=== PATIENT | female | born 1960 | race Two or more races ===

== ENCOUNTER 2022-03-16 11:38 | Emergency (ER) | payer MEDICAID, OTHER ==
[~2022-03-16] VITALS: Ht 160 cm; Wt 110.0 kg
[2022-03-16 12:27] VITALS: BP 157/90
[2022-03-16 12:35] LABS: Urine Bacteria NONE SEEN /hpf (None Seen); Urine WBC 1548 /hpf (0 - 5)
[2022-03-16 12:39] LABS: Urine Specific Gravity 1.015 (1.001-1.035)
[2022-03-16 12:40] LABS: Urine Blood 4+ /uL (Negative)
[2022-03-16] MEDS ORDERED: PHENAZOPYRIDINE HCL 100 MG TAB PO ONE (13:15)
[2022-03-16] MEDS ORDERED: cefTRIAXone SOD 1,000 MG VL IM ONE (13:15)
[2022-03-16] MEDS ORDERED: PHEN200T16 PO (13:21)
[2022-03-16] MEDS ORDERED: BACDST PO (13:21)
== END 2022-03-16 13:36 | disposition home or self-care (01) ==
LOC: ER 11:38 → EDBD 11:38 → ER 13:36
DX: N39.0 Urinary tract infection, site not specified (principal); N81.4 Uterovaginal prolapse, unspecified
CPT/HCPCS: 81001; 96372; 99283; J0696